=== PATIENT | female | born 1955 | race Caucasian/White ===

== ENCOUNTER → 2021-01-23 12:43 | Outpatient (CLI) | payer BC ==
[2010-09-29 14:22] VITALS: BMI 36.6
== END | disposition home or self-care (01) ==
LOC: D.LAB 12:43
PROVIDERS: ATTEND Family Medicine
DX: M54.31 Sciatica, right side (principal); M75.02 Adhesive capsulitis of left shoulder

== ENCOUNTER → 2021-03-03 09:12 | Outpatient (CLI) | payer BC ==
[2010-09-29 14:22] VITALS: BMI 36.6
[~2021-03-03 09:12] MED LIST: ABILIFY2 MG PO; ALEVE220 MG PO; AMBIEN10 MG PO; AMOXICILLIN500 M1 PO; ASPIRIN EC81 M1 PO; BENADRYL25 MG PO; CLARITIN-D1 TAB.SR1 PO; COZAAR100 MG PO; DEMEROL50 MG PO; DILAUDID4 MG PO; DIOVAN HCT 320/1 TA2 PO; Demerol PO; EFFEXOR XR150 MG PO; EFFEXOR XR75 MG PO; EFFEXOR75 MG PO; ELIQUIS2.5 MG PO; HYDROCHLOROTHIA25 MG PO; KLONOPIN0.5 MG PO; NORVASC5 MG PO; PROTONIX40 MG PO; RELPAX40 MG PO; SEROQUEL25 MG PO; TYLENOL #4 W/CO1 TAB PO; TYLENOL W/CODEI1 TAB PO; VALTREX500 MG PO; XANAX0.5 MG PO
[2021-03-06 16:56] VITALS: BMI 40.3
== END | disposition home or self-care (01) ==
LOC: D.US 03-01 09:00
PROVIDERS: ATTEND Family Medicine
DX: R92.8 Other abnormal and inconclusive findings on diagnostic imaging of breast (principal)

== ENCOUNTER 2021-03-06 16:05 | Observation (INO) | payer BC ==
[~2021-03-06] VITALS: Ht 157.5 cm; Wt 100.0 kg
[~2021-03-06 16:05] MED LIST changes: -COZAAR100 MG PO; -EFFEXOR XR150 MG PO; -TYLENOL #4 W/CO1 TAB PO
[2021-03-06 16:56] VITALS: BP 136/80; Ht 157.5 cm; Wt 100.0 kg
[2021-03-06] MEDS ORDERED: EFFEXOR XR150 MG PO (17:06)
[2021-03-06] MEDS ORDERED: TYLENOL #4 W/CO1 TAB PO (17:06)
[2021-03-06] MEDS ORDERED: SEROQUEL25 MG PO (17:07)
[2021-03-06] MEDS ORDERED: VALTREX500 MG PO (17:08)
[2021-03-06] MEDS ORDERED: AMBIEN10 MG PO (17:08)
--- NOTE | 2021-03-06 18:00 | NUR ---
NURSE IN ROOM TO START IV TO LEFT AC. PLAN OF CARE REVIEWED AND ASSESSMENT HAS BEEN COMPLETED BY ADMISSION NURSE. PATIENT IS COVERED IN A HEAD TO TOE RASH. REDNESS NOTED. PATIENT DOES STATE THAT SHE ALREADY HAS BUMPS ALL OVER BODY (LYPOMAS) BUT REDNESS IS NEW FROM THE SULFA ALLERGY. PT IS ALERT AND ORIENTED. PATIENT DOES REPORT NEW ONSET SOB THAT HAS STARTED AFTER RASH BEGAN. PATIENT VITALS WNL. REFUSES SCDS. URINE SAMPLE COLLECTED. CALL LIGHT IN REACH.
--- NOTE | 2021-03-06 18:35 | NUR ---
PATIENT GONE TO RADIOLOGY.
[2021-03-06 18:56] LABS: ALBUMIN 2.9 g/dL (3.4-5.0); ANION GAP 16.3 mmol/L (8-16); BILIRUBIN - TOTAL 0.78 mg/dL (0.2-1.3); CALCIUM 8.4 mg/dL (8.5-10.1); CARBON DIOXIDE 24.5 mmol/L (21.0-32.0); CREATININE - SERUM 1.8 mg/dL (0.6-1.3); POTASSIUM - SERUM 3.8 mmol/L (3.5-5.1); PROTEIN - SERUM 6.6 g/dL (6.4-8.2); URIC ACID 5.6 mg/dL (2.6-7.2)
[2021-03-06 19:41] VITALS: BP 98/53
[2021-03-06 21:23] LABS: BILIRUBIN NEGATIVE (NEGATIVE); KETONE NEGATIVE (NEGATIVE); NITRITE NEGATIVE (NEGATIVE); UROBILINOGEN NORMAL mg/dL (< 2)
[2021-03-06 21:24] LABS: BACTERIA MODERATE HPF (NONE SEEN); SQUAMOUS EPITHELIAL 0-5 HPF (0-4)
--- NOTE | 2021-03-06 21:36 | NUR ---
DR HOUSTON CALLED TO REVIEW LABS AND CXR. N.O. FOR ROCEPHINE 1 GM Q 24H PENDING CULTURE.
[2021-03-07 00:30] VITALS: BP 98/58
--- NOTE | 2021-03-07 05:06 | NUR ---
I have reviewed this patient and I concur with the Shift Assessment completed by the Licensed Practical Nurse today this shift.
--- NOTE | 2021-03-07 08:01 | NUR ---
patient taken to ct
[2021-03-07 08:17] VITALS: BP 117/56
[2021-03-07] MEDS ORDERED: COZAAR100 MG PO (08:21)
[2021-03-07 12:42] VITALS: BP 112/60
--- NOTE | 2021-03-07 13:59 | NUR ---
NURSE GIVES ZOFRAN FOR NAUSEA AT THIS TIME, PATIENT TELLS NURSE SHE HAS A HERNIA AND IF SHE EATS TOO MUCH, SHE SOMTIMES FEELS LIKE THIS.
[2021-03-07 15:57] VITALS: BP 108/47
[2021-03-07 20:00] VITALS: BP 109/66
--- NOTE | 2021-03-08 01:12 | NUR ---
IV SITE TO LEFT AC SLIGHTLY SWOLLEN AND PAINFUL. D/C INTACT. NEW IV STARTED IN RIGHT HAND 22G X1 ATTEMPT PATENT AND IVF INFUSING WITHOUT DIFFICULTY.
[2021-03-08 05:03] VITALS: BP 127/73
[2021-03-08 05:41] LABS: BASOPHILS 0.1 % (0-2); EOSINOPHILS 0.1 % (0-7); HEMATOCRIT 25.7 % (36.0-48.0); IMMATURE GRANULOCYTES 0.8 % (0-5); LYMPHOCYTE ABS# 1.21 10x3/uL (1.18-3.74); LYMPHOCYTES 8.4 % (15-50); MCH 25.3 pg (26.0-34.0); MCHC 31.1 g/dL (31.0-37.0); MCV 81.3 fL (80.0-100.0); MONOCYTES 6.7 % (2-11); NEUTROPHIL ABS# 12.15 10x3/uL (1.56-6.13); NEUTROPHILS 83.9 % (40-80); PLATELET COUNT 331 10x3/uL (130-400); RBC 3.16 10x6/uL (4.00-5.40); RDW 17.7 % (11.5-14.5); WBC 14.5 10x3/uL (4.8-10.8)
[2021-03-08 05:58] LABS: ANION GAP 14.7 mmol/L (8-16); CALCIUM 7.9 mg/dL (8.5-10.1); CARBON DIOXIDE 22.7 mmol/L (21.0-32.0); POTASSIUM - SERUM 3.4 mmol/L (3.5-5.1)
[2021-03-08 06:00] LABS: CREATININE - SERUM 1.3 mg/dL (0.6-1.3)
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
--- NOTE | 2021-03-08 08:56 | NUR ---
AM MEDS GIVEN PER EMAR AT THIS TIME. PT SITTING ON SIDE OF BED, RR EVEN NON LABORED. ICE AND WATER TAKEN PER REQUEST. NO FURTHER NEEDS VOICED. CLWR.
--- NOTE | 2021-03-08 19:45 | NUR ---
ASSESSMENT PER FLOW SHEET, SALINE LOCK IN RIGHT HAND INTACT WITH NO REDNESS OR EDEMA, TELEMETRY IN PLACE, PT REPORTS FLATUS, BM TODAY AND VOIDING WITH NO DIFFICULTY, PT INST ON I.S. AND INFORMED OF NPO AFTER MIDNIGHT, VERBALIZES UNDERSTANDING, DENIES NEEDS OR PAIN AT THIS TIME, DINNER TRAY REMOVED, BED IN LOW POSITION, SIDE RAILS X 2, CALL LIGHT IN REACH
[2021-03-08 20:00] VITALS: BP 136/68
--- NOTE | 2021-03-08 20:59 | NUR ---
ADM 2100 MEDS PER MD ORDERS, UNABLE TO ADM PROTONIX AT THIS TIME, SALINE LOCK NOT PATENT, PT C/O THAT "IT HURTS", SALINE LOCK REMOVED, WILL START ANOTHER IV, FSBS OBTAINED
--- NOTE | 2021-03-08 22:38 | NUR ---
TAMMY RN TO ROOM FOR IV START, ATTEMPTED X2 WITH NO SUCCESS, WILL HAVE ANOTHER NURSE ATTEMPT IV, ADM INSULIN PER MD ORDERS, SEE EMAR
--- NOTE | 2021-03-08 23:38 | NUR ---
MICHAEL RN TO ROOM FOR IV START
--- NOTE | 2021-03-09 00:09 | NUR ---
IV STARTED IN UPPER LEFT ARM PER JOSE RODRIGUEZ, FIRST ATTEMPT, COMPLETED ADM OF PROTONIX, AND ADM BENADRYL PO PER MD ORDERS, SEE EMAR WITH SMALL SIP OF H20, PT INST AGAIN ON NPO NOW, PT VERBALIZES UNDERSTANDING, DENIES NEEDS OR PAIN AT THIS TIME
--- NOTE | 2021-03-09 02:26 | NUR ---
PT RESTING WITH EYES CLOSED, RESP QUIET, NO DISTRESS NOTED, LEFT UNDISTURBED AT THIS TIME, BED IN LOW POSITION, SIDE RAILS X 2, CALL LIGHT IN REACH
[2021-03-09 03:55] VITALS: BP 134/75
--- NOTE | 2021-03-09 06:00 | NUR ---
PT RESTING WITH EYES CLOSED, AROUSES TO SOFT VERBAL STIMULATION, HIBICLENSE BATH GIVEN, PT UP TO BR, GAIT STEADY, VOIDED WITH NO DIFFICULTY, PT TO SINK TO BRUSH TEETH, BACK TO BED, DENIES NEEDS OR PAIN AT THIS TIME, BED IN LOW POSITION, SIDE RAILS X 2, CALL LIGHT IN REACH
[2021-03-09 06:19] LABS: ANION GAP 12.6 mmol/L (8-16); CALCIUM 8.1 mg/dL (8.5-10.1); CARBON DIOXIDE 24.4 mmol/L (21.0-32.0); CREATININE - SERUM 1.2 mg/dL (0.6-1.3)
[2021-03-09 06:23] LABS: BASOPHILS 0.2 % (0-2); EOSINOPHILS 0.1 % (0-7); HEMATOCRIT 25.7 % (36.0-48.0); HEMOGLOBIN 7.9 g/dL (12-16); LYMPHOCYTE ABS# 1.74 10x3/uL (1.18-3.74); LYMPHOCYTES 11.8 % (15-50); MCH 25.2 pg (26.0-34.0); MCHC 30.7 g/dL (31.0-37.0); MCV 82.1 fL (80.0-100.0); MEAN PLATELET VOLUME 9.6 fL (7.4-10.4); NEUTROPHIL ABS# 10.74 10x3/uL (1.56-6.13); NEUTROPHILS 72.9 % (40-80); PLATELET COUNT 387 10x3/uL (130-400); RBC 3.13 10x6/uL (4.00-5.40); RDW 18.2 % (11.5-14.5); WBC 14.7 10x3/uL (4.8-10.8)
--- NOTE | 2021-03-09 07:00 | NUR ---
Lying in bed, awake/alert/oriented, T/R self ad german, cont of B/B with BRPs per self ad german, denies pain, moderate discomfort all over d/t allergic rash, has 2+ BLE edema, recommended to wear SCDs, pt agreed and SCDs placed, call light/phone within reach, NPO for procedure today, no s/s of acute distress observed.
[2021-03-09 08:23] VITALS: BP 147/87
--- NOTE | 2021-03-09 13:43 | NUR ---
GT BELT, PATIENT ABLE TO GET UP TO BEDSIDE AND STAND BY HERSELF. PATIENT WALKED 250 FEET WITH CGA USING WALKER.
--- NOTE | 2021-03-09 15:11 | NUR ---
EGD reported yeast present and a significant hiatal hernia
[2021-03-09] MEDS ORDERED: MEDROL DOSE PACK4 MG PO (17:02)
[2021-03-09 17:45] LABS: % SATURATION 9 % (15-55); IRON 25 ug/dl (35-150); TOTAL IRON BIND CAPACITY 269 ug/dl (260-445); UNSAT IRON BIND CAPACITY 244 ug/dl (150-375)
[2021-03-09 17:58] LABS: FERRITIN 52 ng/mL (3-244); LDH 334 U/L (81-234)
--- NOTE | 2021-03-09 19:27 | NUR ---
IV D/C'D AT THIS TIME, PT DISCHARGED TO HOME AT THIS TIME. PT WHEELED OUT TO FAMILY MEMBER'S PERSONAL VEHICLE.
== END 2021-03-09 19:30 | disposition home or self-care (01) ==
LOC: D.ER 16:05 → EDSTATUS 16:16 → D.M2 16:28 → OBSVTIME 16:29 → D.M2 03-09 19:30
PROVIDERS: Internal Medicine Gastroenterology; ADMIT Family Medicine; ATTEND Family Medicine
DX: T78.3XXA Angioneurotic edema, initial encounter (principal); I95.9 Hypotension, unspecified; N39.0 Urinary tract infection, site not specified; R26.9 Unspecified abnormalities of gait and mobility; R53.83 Other fatigue; N17.9 Acute kidney failure, unspecified; D64.9 Anemia, unspecified; T37.0X5A Adverse effect of sulfonamides, initial encounter; R13.10 Dysphagia, unspecified

== ENCOUNTER → 2021-05-05 10:49 | Outpatient (CLI) | payer BC ==
[2021-03-06 16:56] VITALS: BMI 40.3
[~2021-05-05 10:49] MED LIST changes: +COZAAR100 MG PO; +EFFEXOR XR150 MG PO; +MEDROL DOSE PACK4 MG PO; +TYLENOL #4 W/CO1 TAB PO
== END | disposition home or self-care (01) ==
LOC: D.US 10:49
PROVIDERS: ATTEND Nurse Practitioner
DX: N63.12 Unspecified lump in the right breast, upper inner quadrant (principal)